=== PATIENT | female | born 1955 | race Caucasian/White ===

== ENCOUNTER 2023-11-10 11:01 | Emergency (ER) | payer MEDICARE, OTHER ==
[~2023-11-10] VITALS: Ht 165.1 cm; Wt 74.3 kg
[2023-11-10 14:28] VITALS: BP 115/75; PULSE 91; RESP 17; TEMP 98; O2SAT 97
== END 2023-11-10 13:45 | disposition home or self-care (01) ==
LOC: ER 11:02
DX: S05.11XA Contusion of eyeball and orbital tissues, right eye, initial encounter (principal); M21.371 Foot drop, right foot; Z88.8 Allergy status to other drugs, medicaments and biological substances; W19.XXXA Unspecified fall, initial encounter; Y93.89 Activity, other specified; Y92.89 Other specified places as the place of occurrence of the external cause; Y99.8 Other external cause status
CPT/HCPCS: 70450; 99284; L4360